=== PATIENT | male | born 1965 | race American Indian/Alaskan Native ===

== ENCOUNTER 2019-04-30 21:51 | Emergency (ER) | payer OTHER ==
[2019-04-30 22:00] VITALS: BP 181/81
[2019-04-30] MEDS ORDERED: NORCO 5/325 PO ONE (23:04)
--- NOTE | 2019-04-30 23:09 | Emergency Department Report ---
ED Lower Extremity HPI - General Chief Complaint: Extremity Injury, Lower Stated Complaint: LEG SWELLING Time Seen by Provider: 04/30/19 22:59 Source: patient, family Mode of arrival: Ambulatory Limitations: No Limitations - History of Present Illness Initial Comments: This is a 54-year-old -[place] male history of hypertension diabetes CVA on daily aspirin 81 mg states he drove to [place] over the weekend and drove back over 3 day period. Now with pain and swelling to right lower extremity and Calf Pain pain n increases with dorsiflexion patient denies shortness of breath advises adherence with all medications there is no numbness no tingling no cp no back pain no n/v no diaphoresis Complaint: other (right leg swelling ) -: Sudden Injury: Leg: Right Type of Injury: unknown Place: home Severity: moderate Severity scale (0 -10): 5 Improves With: nothing Worsens With: weight bearing, movement, palpation Context: other (long road trip x 2 ) Associated Symptoms: swelling, able to partially bear weight - Related Data Allergies Allergy/AdvReac Type Severity Reaction Status Date / Time No Known Allergies Allergy Unverified 04/30/19 22:00 ED Review of Systems ROS: Stated complaint: LEG SWELLING Other details as noted in HPI Constitutional: denies: chills, fever Eyes: denies: eye pain, eye discharge, vision change ENT: denies: ear pain, throat pain Respiratory: denies: cough, shortness of breath, wheezing Cardiovascular: denies: chest pain, palpitations, dyspnea on exertion, paroxysmal nocturnal dyspnea Endocrine: no symptoms reported Gastrointestinal: denies: abdominal pain, nausea, diarrhea Genitourinary: denies: urgency, dysuria Musculoskeletal: arthralgia, other (bilat LE Edema ). denies: back pain, joint swelling Skin: denies: rash, lesions Neurological: denies: headache, weakness, paresthesias Psychiatric: denies: anxiety, depression Hematological/Lymphatic: denies: easy bleeding, easy bruising ED Past Medical Hx - Past Medical History Previous Medical History?: Yes Hx Hypertension: Yes Hx Diabetes: Yes - Surgical History Past Surgical History?: Yes Additional Surgical History: Brain tumor, B/L Knee, - Social History Smoking Status: Former Smoker Substance Use Type: None ED Physical Exam - General Limitations: No Limitations General appearance: alert, in no apparent distress - Head Head exam: Present: atraumatic, normocephalic - Eye Eye exam: Present: normal appearance, PERRL, EOMI Pupils: Present: normal accommodation - ENT ENT exam: Present: mucous membranes moist - Neck Neck exam: Present: normal inspection, full ROM. Absent: tenderness, meningismus, lymphadenopathy, thyromegaly - Expanded Neck Exam Expanded Neck exam: Absent: midline deformity, anterior neck swelling, thyroid mass, carotid bruit, tracheal deviation - Respiratory Respiratory exam: Present: normal lung sounds bilaterally. Absent: respiratory distress, wheezes, stridor, chest wall tenderness - Cardiovascular Cardiovascular Exam: Present: regular rate, normal rhythm, normal heart sounds. Absent: systolic murmur, diastolic murmur, rubs, gallop - GI/Abdominal GI/Abdominal exam: Present: soft, normal bowel sounds. Absent: distended, bruit, hernia - Rectal Rectal exam: Present: deferred - Extremities Exam Extremities exam: Present: tenderness, normal capillary refill, pedal edema, joint swelling, calf tenderness - Expanded Lower Extremity Exam Right Lower Leg exam: Present: tenderness, swelling, Sil's sign. Absent: laceration, ecchymosis, deformity, crepidus, dislocation, erythema, palpable cord Ankle exam: Present: tenderness, swelling Foot/Toe exam: Present: swelling Neuro vascular tendon exam: Absent: pulse deficit, motor deficit, sensory deficit, tendon deficit Gait: Positive: observed and limited by pain ED Course Vital Signs 04/30/19 04/30/19 21:57 23:50 Temperature 98.5 F Pulse Rate 87 Respiratory 20 16 Rate Blood Pressure 181/81 O2 Sat by Pulse 99 Oximetry ED Lower Extremity MDM - Lab Data Result diagrams: 04/30/19 23:09 04/30/19 23:09 Labs 04/30/19 04/30/19 04/30/19 23:09 23:09 23:09 WBC 5.6 RBC 4.02 Hgb 12.5 Hct 36.2 MCV 90 MCH 31 MCHC 35 H RDW 14.1 Plt Count 140 Lymph % (Auto) 41.9 H [place] % (Auto) 6.8 Eos % (Auto) 5.7 H Baso % (Auto) 1.1 Lymph # 2.3 [place] # 0.4 Eos # 0.3 Baso # 0.1 Seg Neutrophils % 44.5 Seg Neutrophils # 2.5 PT 13.3 INR 1.04 APTT 33.0 Sodium 140 Potassium 4.0 Chloride 100.5 Carbon Dioxide 29 Anion Gap 15 BUN 12 Creatinine 1.1 Estimated GFR > 60 BUN/Creatinine Ratio 11 Glucose 296 H Calcium 9.6 Total Bilirubin 0.30 AST 15 ALT 14 Alkaline Phosphatase 94 Troponin T NT-Pro-B Natriuret Pep 6.01 Total Protein 7.0 Albumin 4.3 Albumin/Globulin Ratio 1.6 04/30/19 23:09 WBC RBC Hgb Hct MCV MCH MCHC RDW Plt Count Lymph % (Auto) [place] % (Auto) Eos % (Auto) Baso % (Auto) Lymph # [place] # Eos # Baso # Seg Neutrophils % Seg Neutrophils # PT INR APTT Sodium Potassium Chloride Carbon Dioxide Anion Gap BUN Creatinine Estimated GFR BUN/Creatinine Ratio Glucose Calcium Total Bilirubin AST ALT Alkaline Phosphatase Troponin T < 0.010 NT-Pro-B Natriuret Pep Total Protein Albumin Albumin/Globulin Ratio - Radiology Data Radiology results: report reviewed, image reviewed Ordering Physician: BIBI PAIGE NP Date of Service: 04/30/19 Procedure(s): XR chest routine 2V Accession Number(s): [id number] cc: BIBI PAIGE NP Fluoro Time In Minutes: CHEST 2 VIEWS INDICATION: chf. COMPARISON: None. FINDINGS: Support devices: None. Heart: Within normal limits. Lungs/Pleura: No acute air space or interstitial disease. No significant pleural effusion. IMPRESSION: No acute findings. Signer Name: Vasiliy Martinez MD Signed: 04/30/2019 11:47 PM Workstation Name: [id number] Transcribed By: ES Dictated By: Vasiliy Martinez MD Electronically Authenticated By: Vasiliy Martinez MD Signed Date/Time: 04/30/192346 DD/ 45 TD/TT: Xray RLE normal no fracture diffuse soft tissue swelling no foreign body - Medical Decision Making labs normal, cxr normal, rle xray no fx, soft tissue swelling, given pos sil's sign, pain with dorsoflexion or right LE plan lovenox 100mg SQ , return radiology in am 8am, for venous doppler LE, at this time distal pulse are intact +2, rom intact pt is ambulatory with steady gait pain is improve do 2/10, pt and verbalized agreement and understanding of discharge plan. pt dc'd in stable condition at this time. Critical care attestation.: If time is entered above; I have spent that time in minutes in the direct care of this critically ill patient, excluding procedure time. ED Disposition Clinical Impression: Leg edema, right, Leg pain, right Disposition: DC-01 TO HOME OR SELFCARE Is pt being admited?: No Does the pt Need Aspirin: No Condition: Stable Instructions: Leg Edema (ED) Additional Instructions: report to radiology in am at 8:00 am for NM [place] Doppler Right leg in Referrals: PRIMARY CARE, [Primary Care Provider] - 3-5 Days Forms: Work/School Release Form(ED) Time of Disposition: 00:16
[2019-04-30 23:22] LABS: Basophils # (Auto) 0.1 K/mm3 (0.0-0.1); Basophils % (Auto) 1.1 % (0.0-1.8); Eosinophils # (Auto) 0.3 K/mm3 (0.0-0.4); Eosinophils % (Auto) 5.7 % (0.0-4.3); Hematocrit 36.2 % (35.5-45.6); Hemoglobin 12.5 gm/dl (11.8-15.2); Lymphocytes # (Auto) 2.3 K/mm3 (1.2-5.4); Lymphocytes % (Auto) 41.9 % (13.4-35.0); Mean Corpuscular HGB Conc 35 % (32-34); Mean Corpuscular Volume 90 fl (84-94); Monocytes # (Auto) 0.4 K/mm3 (0.0-0.8); Monocytes % (Auto) 6.8 % (0.0-7.3); Platelet Count 140 K/mm3 (140-440); Red Blood Count 4.02 M/mm3 (3.65-5.03); Red Cell Distribution Width 14.1 % (13.2-15.2)
[2019-04-30 23:31] LABS: INR 1.04 (0.87-1.13)
[2019-04-30 23:48] LABS: Alanine Aminotransferase 14 units/L (7-56); Albumin 4.3 g/dL (3.9-5); BUN/Creatinine Ratio 11; Blood Urea Nitrogen 12 mg/dL (9-20); Calcium 9.6 mg/dL (8.4-10.2); Hemolysis Index 6
--- NOTE | 2019-04-30 23:51 | XRay Report ---
RIGHT TIBIA AND FIBULA ONE VIEW. INDICATION / CLINICAL INFORMATION: leg pain swelling COMPARISON: None available. FINDINGS: BONES / JOINT(S): No acute fracture or subluxation. No significant arthritis. SOFT TISSUES: Diffuse soft tissue swelling. Negative for foreign body. ADDITIONAL FINDINGS: None. Signer Name: Vasiliy Martinez MD Signed: 04/30/2019 11:46 PM Workstation Name: [id number]
--- NOTE | 2019-04-30 23:51 | XRay Report ---
CHEST 2 VIEWS INDICATION: chf. COMPARISON: None. FINDINGS: Support devices: None. Heart: Within normal limits. Lungs/Pleura: No acute air space or interstitial disease. No significant pleural effusion. IMPRESSION: No acute findings. Signer Name: Vasiliy Martinez MD Signed: 04/30/2019 11:47 PM Workstation Name: [id number]
[2019-05-01] MEDS ORDERED: LOVENOX SUB-Q ONE (00:13)
== END 2019-05-01 01:00 | disposition home or self-care (01) ==
LOC: ED 21:51
DX: R60.1 Generalized edema (principal); I10 Essential (primary) hypertension; E11.9 Type 2 diabetes mellitus without complications; Z98.890 Other specified postprocedural states; Z87.891 Personal history of nicotine dependence
CPT/HCPCS: 36415; 71046; 73590; 80053; 83880; 84484; 85025; 85610; 85730; 96372; 99284; J1650